=== PATIENT | male | born 1960 | race Caucasian/White ===

== ENCOUNTER 2017-07-10 13:42 | Inpatient (IN) | payer MEDICAID ==
[2017-07-10] MEDS ORDERED: NS 500 ML IV ONE (13:49)
[2017-07-10] MEDS ORDERED: ALBUTEROL 3 ML DEYVIAL IH ONE ×2 (13:49→14:32)
[2017-07-10] MEDS ORDERED: IPRATROPIUM/ALBUTEROL 3 ML DEYVIAL IH ONE (13:49)
[2017-07-10] MEDS ORDERED: methylPREDNISolone SOD SUCC 125 MG/2 ML VIAL IVP ONE (13:49)
--- NOTE | 2017-07-10 13:57 | EDPHY ---
H & P <Franky Villafana - Last Filed: 07/10/17 15:48> Smoking Status: Never smoked <Jesus Spivey Tess - Last Filed: 07/11/17 10:55> Time Seen by Provider: 07/10/17 13:47 HPI/ROS: CHIEF COMPLAINT: Shortness of breath HISTORY OF PRESENT ILLNESS: 57-year-old man with history of asthma and diabetes presents with shortness of breath for the last 4 days. He apparently intermittent use of oxygen at home, but is not on it chronically. Today he was severely short of breath, worse with exertion lying supine, only a little bit better with oxygen up to 5-7 L. cough but not productive of sputum. No fevers or chills. No chest pain or vomiting or diarrhea. He has chronic leg swelling which is unchanged. No recent travel or immobilization. He has been using inhaler without any improvement. REVIEW OF SYSTEMS: Eye: no change in vision ENT: no sore throat Cardiac: no chest pain or syncope Pulmonary: HPI Abdomen: no vomiting, diarrhea, abdominal pain Musculoskeletal: no back pain Skin: Chronic lower extremity venous stasis changes unchanged Neuro: no headache Constitutional: no fever : no urinary symptoms A comprehensive 10 point review of systems is otherwise negative aside from elements mentioned in the history of present illness. PAST MEDICAL HISTORY: Asthma and diabetes, prostate cancer, hypertension. Social history: Here with his mom, nonsmoker General Appearance: Alert and conversant, cooperative. Eyes: No scleral icterus. ENT, Mouth: Normal mucous membranes. Respiratory: Increased work of breathing, retractions, decreased air movement with increased expiratory phase and bilateral wheezing. Cardiovascular: Regular rate and rhythm. Gastrointestinal: Abdomen is soft and non tender. Neurological: Alert, face symmetric, normal motor and sensory in extremities. Skin: No petechiae or urticaria. Musculoskeletal: Bilateral pedal edema with venous stasis changes but no calf tenderness. Psychiatric: Not agitated. Emergency Department course/MDM: Patient severely short of breath with initial room air saturation in the high 80 's. Severely dyspneic on 7 L nasal cannula from his home tank on arrival. Supplemental oxygen applied, DuoNeb and albuterol nebulizer, chest x-ray and IV Solu-Medrol 80 mg. EKG troponin and D-dimer. 1429: Chest x-ray personally interpreted as bronchitis without evidence of pneumonia. D-dimer elevated greater than 0.1 times age, CT chest discussed and consented to evaluate for pulmonary embolism. Recommended admission at [facility], and ALS for transfer because of severity of reactive airway disease exacerbation, and need for supplemental oxygen. Likely reactive airway disease exacerbation, respiratory panel pending. 1438: discussed with patient, still dyspneic but feels better, more air movement but still wheezy. Additional albuterol nebulizer. Recommended admission, patient is reluctant because of cost reasons, will discuss with case management and admissions, try to get the patient more information. Warned of risks of leaving against medical advice including but not limited to worsening symptoms, respiratory or cardiac arrest, disability, . Signed out to [facility] at 1500; plan is admission, transfer to [facility], followup on CTA chest and initiate action appropriate to results. (Jesus Spivey) Constitutional: Initial Vital Signs Temperature (C) 37 C 07/10/17 13:46 Heart Rate 85 07/10/17 13:46 Respiratory Rate 20 07/10/17 13:46 Blood Pressure 185/99 H 07/10/17 13:46 O2 Sat (%) 92 07/10/17 13:46 O2 Delivery Mode Nasal Cannula O2 (L/minute) 2 Allergies/Adverse Reactions: No Known Allergies Allergy (Verified 07/10/17 13:50) Home Medications: Medication Instructions Recorded Albuterol Sulfate [ALBUTEROL 2.5 mg IH Q4H PRN 07/10/17 SULFATE 1.25 MG/3 ML] Atorvastatin Calcium [Lipitor 10 10 mg PO DAILY 07/10/17 mg (*)] FLUoxetine [Prozac 20 MG (*)] 20 mg PO DAILY 07/10/17 Furosemide [Lasix 20 MG (*)] 20 mg PO DAILY 07/10/17 Lisinopril [Zestril 40 mg (*)] 20 mg PO DAILY 07/10/17 Montelukast Sodium [Singulair 10 10 mg PO DAILY 07/10/17 mg (*)] Multivitamins [Multivitamin (*)] 1 each PO DAILY 07/10/17 Tamsulosin HCl [Flomax 0.4 MG (*)] 0.4 mg PO DAILY 07/10/17 hydrOXYzine HCL [Vistaril 25MG] 12.5 - 25 mg PO Q8H PRN 07/10/17 metFORMIN HCL [Glucophage 500 mg 500 mg PO BIDMEAL 07/10/17 (*)] Medical Decision Making - Diagnostics Imaging: Discussed imaging studies w/ call worker person Radiologist <Franky Villafana - Last Filed: 07/10/17 15:48> Consult/Admit Bed Type: [facility] <Jesus Spivey - Last Filed: 07/11/17 10:55> - Diagnostics EKG Interpretation: 12-lead EKG interpreted by me; official reading is in trace master. My interpretation is sinus rhythm with right axis deviation, rate 85. (Jesus Spivey) Imaging Results: CT angiogram of chest: Significant for two subsegmental right lower lobe pulmonary emboli. This is otherwise a normal study. Results were discussed with staff radiologist Dr. Rambo Herrera. (Franky Villafana) ED Course/Re-evaluation: I took over care of this patient at 3:00 p.m.. This patient was in the CT suite getting a CT angiogram of his chest to evaluate for pulmonary embolism. He presented primarily with asthma exacerbation but had an elevated D-dimer. CT angiogram of the chest was significant for 2 small subsegmental right lower lobe pulmonary emboli. The study was otherwise normal. Lungs were clear. No other significant pathology. The patient was continued on nebulized albuterol through his remaining emergency department course under my care. He has had improvement in his air movement but has remained wheezy. I discussed the results of his CT angiogram with him and his mother and explained the diagnosis of pulmonary embolism. I do not feel that this however is contributing to his current asthma exacerbation. He agrees to admission. He will be transferred by ambulance. I spoke with the on-call hospitalist, Dr. Palmer, discussed CT findings with him. Anticoagulation will be deferred to the hospitalist service. The patient's remaining emergency department course under my care has been uneventful. He was transferred in stable condition to [facility]. (Franky Villafana) Differential Diagnosis: Differential diagnosis considered for shortness of breath including but not limited to pulmonary infectious process, COPD, asthma, pulmonary embolus and congestive heart failure. (Jesus Spivey) - Data Points Laboratory Results: Laboratory Results 07/10/17 13:55 07/10/17 13:55 Microbiology Results: MICROBIOLOGY 07/10/17 14:20 Nasal, Sinus - Swab Respiratory Panel (PCR) - Final Coronovirus Oc43 Detected Medications Given: Albuterol (Proventil Neb) 3 ml IH QID [facility] Stop: 01/06/18 20:59 Last Admin: 07/11/17 09:21 Dose: 3 ml Albuterol (Proventil Neb) 3 ml IH Q4HRS PRN PRN Reason: Short of Breath/Dyspnea Stop: 01/06/18 16:41 Last Admin: 07/10/17 23:49 Dose: 3 ml Atorvastatin Calcium (Lipitor) 10 mg PO DAILY [facility] Stop: 01/07/18 08:59 Last Admin: 07/11/17 08:04 Dose: 10 mg Fluoxetine HCl (Prozac) 20 mg PO DAILY [facility] Stop: 01/07/18 08:59 Last Admin: 07/11/17 08:04 Dose: 20 mg Furosemide (Lasix) 20 mg PO DAILY [facility] Stop: 01/07/18 08:59 Last Admin: 07/11/17 08:04 Dose: 20 mg Insulin Human Lispro (Humalog Lispro) 0 unit SC TIDMEAL [facility] PRN Reason: Protocol Stop: 01/06/18 17:59 Last Admin: 07/11/17 07:45 Dose: Not Given Lisinopril (Zestril) 20 mg PO DAILY [facility] Stop: 01/07/18 08:59 Last Admin: 07/11/17 08:04 Dose: 20 mg Lorazepam (Ativan) 0.5 - 1 mg PO Q4HRS PRN PRN Reason: Anxiety Stop: 01/06/18 21:16 Last Admin: 07/11/17 03:03 Dose: 1 mg Montelukast Sodium (Singulair) 10 mg PO DAILY [facility] Stop: 01/07/18 08:59 Last Admin: 07/11/17 08:04 Dose: 10 mg Prednisone (Prednisone) 40 mg PO DAILY [facility] Stop: 01/07/18 08:59 Last Admin: 07/11/17 08:04 Dose: 40 mg Rivaroxaban (Xarelto) 15 mg PO BIDMEAL [facility] Stop: 01/06/18 17:59 Last Admin: 07/11/17 08:04 Dose: 15 mg Tamsulosin HCl (Flomax) 0.4 mg PO DAILY [facility] Stop: 01/07/18 08:59 Last Admin: 07/11/17 08:04 Dose: 0.4 mg Discontinued Medications Albuterol (Proventil Neb) 3 ml IH EDNOW ONE Stop: 07/10/17 13:50 Last Admin: 07/10/17 13:57 Dose: 3 ml Albuterol (Proventil Neb) 3 ml IH EDNOW ONE Stop: 07/10/17 14:33 Last Admin: 07/10/17 15:18 Dose: 3 ml Albuterol/Ipratropium (Duoneb) 3 ml IH EDNOW ONE Stop: 07/10/17 13:50 Last Admin: 07/10/17 13:57 Dose: 3 ml Furosemide (Lasix Injection) 20 mg IVP ONCE ONE Stop: 07/10/17 17:06 Last Admin: 07/10/17 18:32 Dose: 20 mg Sodium Chloride (Ns) 500 mls @ 1,000 mls/hr IV EDNOW ONE PRN Reason: Protocol Stop: 07/10/17 14:18 Last Admin: 07/10/17 13:57 Dose: 500 mls Methylprednisolone Sodium Succinate (Solu-Medrol) 80 mg IVP EDNOW ONE Stop: 07/10/17 13:50 Last Admin: 07/10/17 13:58 Dose: 80 mg Departure <Franky Villaafna - Last Filed: 07/10/17 15:48> <Jesus Spivey - Last Filed: 07/11/17 10:55> - Departure Disposition: [facility] Clinical Impression: Pulmonary embolism Exacerbation of asthma Qualifiers: Asthma severity: moderate Asthma persistence: unspecified Qualified Code(s): J45.901 - Unspecified asthma with (acute) exacerbation Condition: Fair
[2017-07-10 14:04] LABS: PLATELET COUNT 193 10^3/uL (150-400)
--- NOTE | 2017-07-10 14:04 | CPEKG ---
Heart Rate: 85 RR Interval: 706 P-R Interval: 156 QRSD Interval: 96 QT Interval: 356 QTC Interval: 424 P [place]: 53 QRS [place]: 92 T Wave [place]: 32 EKG Severity - OTHERWISE NORMAL ECG - EKG Impression: SINUS RHYTHM EKG Impression: BORDERLINE RIGHT AXIS DEVIATION Electronically Signed By: Jesus Spivey 10-Jul-2017 14:05:17
[2017-07-10] MEDS ORDERED: IOPAMIDOL (ISOVUE 370) 100 ML BTL IV ONE (14:37)
[2017-07-10] MEDS ORDERED: ONDANSETRON 4 MG/2 ML VIAL IVP PRN (15:07)
[2017-07-10] MEDS ORDERED: ACETAMINOPHEN 325 MG TAB PO PRN (15:07)
[2017-07-10] MEDS ORDERED: ONDANSETRON DISINTEGRATING 4 MG TAB PO PRN (15:07)
[2017-07-10] MEDS ORDERED: oxyCODONE IR 5 MG TAB PO PRN (15:07)
[2017-07-10] MEDS ORDERED: FUROSEMIDE 20 MG/2 ML VIAL IVP ONE (17:05)
[2017-07-10] MEDS ORDERED: D50W 25 GM/50 ML VIAL IVP PRN (17:06)
--- NOTE | 2017-07-10 17:12 | PDGENHP ---
History and Physical - Chief Complaint SOB - History of Present Illness 57-year-old man with history of asthma and diabetes presents with shortness of breath for the last 4 days. He apparently intermittent use of oxygen at home, but is not on it chronically. Today he was severely short of breath, worse with exertion lying supine, only a little bit better with oxygen up to 5-7 L. cough but not productive of sputum. No fevers or chills. No chest pain or vomiting or diarrhea. He has chronic leg swelling which is unchanged. He denies a hx of CHF, but is on diuretics. He also reports that he has never had an echocardiogram. CXR c/w peribronchial thickening He has been using inhaler without any improvement. He denies CP or palpitations. He does have MCKAY and orthopnea. He does have leg edema unchanged CTA c/w small volume subsegmental acute Pulmonary Embolus RLL, bronchitis. No e/ o of right heart strain. No e/o pneumonia PAST MEDICAL HISTORY: Asthma and diabetes, prostate cancer, hypertension. Social Hx: non smoker FMhx: + CV disease History Information - Allergies/Home Medication List Allergies/Adverse Reactions: No Known Allergies Allergy (Verified 07/10/17 13:50) Home Medications: Albuterol Sulfate [ALBUTEROL SULFATE 1.25 MG/3 ML] 2.5 mg IH Q4H PRN 07/10/17 [ Last Taken 07/10/17 13:00] Atorvastatin Calcium [Lipitor 10 mg (*)] 10 mg PO DAILY 07/10/17 [Last Taken ] FLUoxetine [Prozac 20 MG (*)] 20 mg PO DAILY 07/10/17 [Last Taken 07/10/17] Furosemide [Lasix 20 MG (*)] 20 mg PO DAILY 07/10/17 [Last Taken 07/10/17] Lisinopril [Zestril 40 mg (*)] 20 mg PO DAILY 07/10/17 [Last Taken 07/10/17] Montelukast Sodium [Singulair 10 mg (*)] 10 mg PO DAILY 07/10/17 [Last Taken ] Multivitamins [Multivitamin (*)] 1 each PO DAILY 07/10/17 [Last Taken 07/10/17] Tamsulosin HCl [Flomax 0.4 MG (*)] 0.4 mg PO DAILY 07/10/17 [Last Taken 07/10/17 ] hydrOXYzine HCL [Vistaril 25MG] 12.5 - 25 mg PO Q8H PRN 07/10/17 [Last Taken Unknown] metFORMIN HCL [Glucophage 500 mg (*)] 500 mg PO BIDMEAL 07/10/17 [Last Taken 09:00] I have personally reviewed and updated: medical history, social history - Social History Smoking Status: Never smoked Review of Systems Review of Systems: ROS: 10pt was reviewed & negative except for what was stated in HPI & below Physical Exam Physical Exam: Temp Pulse Resp BP Pulse Ox 36.6 C 98 18 160/95 H 93 07/10/17 16:10 07/10/17 16:10 07/10/17 16:10 07/10/17 16:10 07/10/17 16:10 O2 (L/minute) 3 Constitutional: no apparent distress Eyes: PERRL, EOMI Ears, Nose, Mouth, Throat: moist mucous membranes, hearing normal Cardiovascular: regular rate and rhythym, edema, No JVD Respiratory: reduced air movement, expiratory wheeze Gastrointestinal: normoactive bowel sounds Genitourinary: no bladder fullness Skin: warm Musculoskeletal: full muscle strength Neurologic: AAOx3 Psychiatric: interacting appropriately, not anxious, not encephalopathic Lymph, Heme, Immunologic: No petechiae Lab Data & Imaging Review 07/10/17 13:55 07/10/17 13:55 WBC 6.94 10^3/uL (3.80-9.50) 07/10/17 13:55 RBC 6.26 10^6/uL (4.40-6.38) 07/10/17 13:55 Hgb 16.5 g/dL (13.7-17.5) 07/10/17 13:55 Hct 51.9 % (40.0-51.0) H 07/10/17 13:55 MCV 82.9 fL (81.5-99.8) 07/10/17 13:55 MCH 26.4 pg (27.9-34.1) L 07/10/17 13:55 MCHC 31.8 g/dL (32.4-36.7) L 07/10/17 13:55 RDW 17.4 % (11.5-15.2) H 07/10/17 13:55 Plt Count 193 10^3/uL (150-400) 07/10/17 13:55 MPV 9.8 fL (8.7-11.7) 07/10/17 13:55 Neut % (Auto) 74.4 % (39.3-74.2) H 07/10/17 13:55 Lymph % (Auto) 11.8 % (15.0-45.0) L 07/10/17 13:55 [place] % (Auto) 11.2 % (4.5-13.0) 07/10/17 13:55 Eos % (Auto) 1.7 % (0.6-7.6) 07/10/17 13:55 Baso % (Auto) 0.3 % (0.3-1.7) 07/10/17 13:55 Nucleat RBC Rel Count 0.0 % (0.0-0.2) 07/10/17 13:55 Absolute Neuts (auto) 5.16 10^3/uL (1.70-6.50) 07/10/17 13:55 Absolute Lymphs (auto) 0.82 10^3/uL (1.00-3.00) L 07/10/17 13:55 Absolute Monos (auto) 0.78 10^3/uL (0.30-0.80) 07/10/17 13:55 Absolute Eos (auto) 0.12 10^3/uL (0.03-0.40) 07/10/17 13:55 Absolute Basos (auto) 0.02 10^3/uL (0.02-0.10) 07/10/17 13:55 Absolute Nucleated RBC 0.00 10^3/uL (0-0.01) 07/10/17 13:55 Immature Gran % 0.6 % (0.0-1.1) 07/10/17 13:55 Immature Gran # 0.04 10^3/uL (0.00-0.10) 07/10/17 13:55 D-Dimer 0.65 ug/mLFEU (0.00-0.50) H 07/10/17 13:55 Sodium 139 mEq/L (135-145) 07/10/17 13:55 Potassium 4.5 mEq/L (3.5-5.2) 07/10/17 13:55 Chloride 96 mEq/L (97-110) L 07/10/17 13:55 Carbon Dioxide 29 mEq/l (22-31) 07/10/17 13:55 Anion Gap 14 mEq/L (8-16) 07/10/17 13:55 BUN 12 mg/dL (7-23) 07/10/17 13:55 Creatinine 0.7 mg/dL (0.7-1.3) 07/10/17 13:55 Estimated GFR > 60 07/10/17 13:55 Glucose 122 mg/dL (70-100) H 07/10/17 13:55 Calcium 9.2 mg/dL (8.5-10.4) 07/10/17 13:55 Troponin I 0.015 ng/mL (0.000-0.034) 07/10/17 13:55 Assessment & Plan Assessment: #Acute Asthma Exacerbation #Acute Viral Bronchitis (Aparicio Virus) #Pedal Edema, Query CHF #Acute Respiratory Failure #Small volume RLL subsegmental Acute pulmonary Embolus, likely not contributing to his sx -unprovoked Plan: -Cont steroids -Scheduled albuterol -Check TTE -Lasix x 1 -check dopplers, although doubt LE DVT -DM mgmt -cont appropriate home meds -Start Xarelto, would determine duration of AC pending doppler studies
[2017-07-10] MEDS: RIVAROXABAN 15 MG TAB PO SCH (18:32)
[2017-07-10] MEDS: INSULIN LISPRO 100 UNIT/ML SC SCH (19:07)
[2017-07-10] MEDS: ALBUTEROL 3 ML DEYVIAL IH SCH (19:52)
[2017-07-10] MEDS: LORazepam 1 MG TAB PO PRN (21:25)
[2017-07-10] MEDS: ALBUTEROL 3 ML DEYVIAL IH PRN (23:49)
[2017-07-11] MEDS: LORazepam 1 MG TAB PO PRN ×3 (03:03→20:18)
[2017-07-11 05:19] LABS: PLATELET COUNT 198 10^3/uL (150-400)
[2017-07-11] MEDS: ALBUTEROL 3 ML DEYVIAL IH SCH ×4 (05:43→20:29)
[2017-07-11] MEDS: INSULIN LISPRO 100 UNIT/ML SC SCH ×3 (07:45→17:39)
[2017-07-11] MEDS: ATORVASTATIN CALCIUM 10 MG TAB PO SCH (08:04)
[2017-07-11] MEDS: RIVAROXABAN 15 MG TAB PO SCH ×2 (08:04→17:40)
[2017-07-11] MEDS: TAMSULOSIN HCL 0.4 MG CAP PO SCH (08:04)
[2017-07-11] MEDS: FUROSEMIDE 20 MG TAB PO SCH (08:04)
[2017-07-11] MEDS: FLUoxetine 20 MG CAP PO SCH (08:04)
[2017-07-11] MEDS: predniSONE 20 MG TAB PO SCH (08:04)
[2017-07-11] MEDS: MONTELUKAST SODIUM 10 MG TAB PO SCH (08:04)
[2017-07-11] MEDS: LISINOPRIL 20 MG TAB PO SCH (08:04)
--- NOTE | 2017-07-11 10:40 | ASMTCMCOM ---
CM Note CM Note Notes: Spoke w/DISTRICT LEADER, anticipate pt will dc home independent when medically stable, may need some home O2. CM available for any changes. DC Plan: Independent Date Signed: 07/11/2017 10:39 AM Electronically Signed By:Laurita Martino RN
--- NOTE | 2017-07-11 11:00 | ECHO ---
[email or web address] [address] Main: [phone] Fax: Transthoracic Echocardiogram Name: ERIC SAMUEL MR#: [id number] Study Date: 07/11/2017 Study Time: 07:41 AM Date of : 1960 Age: 57 year(s) Height: 180.3 cm (71 in.) Weight: 127.01 kg (280 lb.) BSA: 2.43 m2 Gender: Male Examination: Echo Indication: Hypoxia, Asthma Image Quality: Contrast: Requested by: Kit Palmer BP: 154 mmHg/101 mmHg Heart Rate: Rhythm: Normal sinus rhythm Indication: Hypoxia, Asthma Procedure Staff Senior Technical Manager: Tee Abreu Reading Physician: Sly Amos Requesting Provider: Conclusions: Normal size left ventricle. Mild concentric LV hypertrophy. EF is 69 %. No regional wall motion abnormality. Normal appearing valvular structures. No valvular dysfunction. No pericardial effusion. Measurements: Chambers Valvular Assessment AV/MV Valvular Assessment TV/PV Normal Normal Normal Name Value Range Name Value Range Name Value Range Ao [place] (MM): 2.5 cm (2.2 cm-3.7 AV Vmax: 1.89 m/s (1 m/s-1.7 PV Vmax: 0.84 m/s (0.6 m/s-0.9 cm) m/s) m/s) IVSd (2D): 1.2 cm (0.6 cm-1.1 AV maxP mmHg ( - ) PV PGmax: 3 mmHg ( - ) cm) LVOT Vmax: 1.30 m/s (0.7 m/s-1.1 LVDd (2D): 5.0 cm (4.2 cm-5.9 m/s) cm) MV E Vmax: 1.00 m/s ( - ) LVDs (2D): 3.0 cm (2.1 cm-4 MV A Vmax: 0.92 m/s ( - ) cm) MV E/A: 1.09 ( - ) LVPWd (2D): 1.2 cm (0.6 cm-1 cm) LVEF (2D): 69 (>=54 %) Continued Measurements: Chambers Valvular Assessment AV/MV Name Value Name Value LADs Lon.6 cm MV E/E' Septal: 24.40 LA Area: 18.9 cm2 MV E/E' Lateral: 10.00 Patient: ERIC SAMUEL Study Date: 07/11/2017 Page 1 of 2 07:41 AM LA Volume: 61 ml LA Volume Index: 25.1 ml/m2 Findings: Left Ventricle: Normal size left ventricle. Mild concentric LV hypertrophy. Normal global systolic LV function. EF is 69 %. No regional wall motion abnormality. Right Ventricle: Normal size right ventricle. Normal RV function. Left Atrium: The left atrium is normal in size. Right Atrium: The right atrium is normal in size. Mitral Valve: The mitral valve is normal in appearance and function. Aortic Valve: The aortic valve is normal in appearance and function. Tricuspid Valve: The tricuspid valve is normal in appearance and function. Pulmonic Valve: The pulmonic valve is normal in appearance and function. Aorta: The aorta is normal. Pericardium: No pericardial effusion. (No Signature Object) Patient: ERIC SAMUEL Study Date: 07/11/2017 Page 2 of 2 07:41 AM [id number]
--- NOTE | 2017-07-11 15:25 | HOSPPROG ---
Hospitalist Progress Note Assessment/Plan: 57y male with c/o sob. First encounter, chart reviewed. D/W CM. #Acute Asthma Exacerbation improved #Acute Viral Bronchitis ([place] Virus) on o2 #Pedal Edema better chronic, vascular issues d/w pt fu with PCP #Acute hypoxemic Respiratory Failure cont supplement o2 #Small volume RLL subsegmental Acute pulmonary Embolus, likely not contributing to his sx unprovoked anticoagulate, xarelto ECHO stable family hx of DC needs outpt follow up Plan: -Cont steroids -Scheduled albuterol -Lasix x 1 -DM mgmt -cont appropriate home meds -Start Xarelto, would determine duration of AC pending doppler studies -needs multiple things worked up as outpatient -reviewed with pt -agrees with plan -change to inpatient -requires supportive care overnight Subjective: Still very SOB. Tired and weak. Objective: Vital Signs Temp Pulse Resp BP Pulse Ox 36.8 C 98 20 154/101 H 93 07/11/17 07:27 07/11/17 14:06 07/11/17 14:06 07/11/17 08:04 07/11/17 14:06 Laboratory Results 07/11/17 04:32 07/11/17 04:32 07/10/17 07/11/17 07/12/17 05:59 05:59 05:59 Intake Total 500 Output Total 600 Balance -100 - Physical Exam Constitutional: chronically ill appearing, obese, uncomfortable Eyes: PERRL, anicteric sclera, EOMI Ears, Nose, Mouth, Throat: moist mucous membranes, hearing normal, ears appear normal Cardiovascular: regular rate and rhythym, edema, No JVD Respiratory: no rales or rhonchi, reduced air movement, expiratory wheeze Gastrointestinal: normoactive bowel sounds, No tenderness, No ascites Skin: warm, normal color, No erythema Musculoskeletal: normal joint ROM, no joint effusions, generalized weakness Neurologic: AAOx3 Psychiatric: interacting appropriately, not anxious, not encephalopathic, thought process linear, poor insight, poor judgement ICD10 Worksheet Patient Problems: Problems Problem Status Onset Exacerbation of asthma Acute Pulmonary embolism Acute
--- NOTE | 2017-07-11 16:28 | PDMN ---
Medical Necessity Medical necessity: Change to IP, as of 07/11/17, per COIL INSPECTOR; los >2 mn for ongoing management of acute hypoxemic respiratory failure, acute asthma exacerbation, acute viral bronchitis, pedal edema & small volume RLL subsegmental acute PE; admit for further monitoring & supportive care; per progress note & order
[2017-07-12] MEDS: ALBUTEROL 3 ML DEYVIAL IH PRN (01:44)
[2017-07-12] MEDS: ALBUTEROL 3 ML DEYVIAL IH SCH ×5 (05:37→21:09)
[2017-07-12] MEDS: INSULIN LISPRO 100 UNIT/ML SC SCH ×3 (08:16→17:14)
[2017-07-12] MEDS: RIVAROXABAN 15 MG TAB PO SCH ×2 (08:36→17:15)
[2017-07-12] MEDS: MONTELUKAST SODIUM 10 MG TAB PO SCH (08:36)
[2017-07-12] MEDS: TAMSULOSIN HCL 0.4 MG CAP PO SCH (08:36)
[2017-07-12] MEDS: ATORVASTATIN CALCIUM 10 MG TAB PO SCH (08:36)
[2017-07-12] MEDS: LISINOPRIL 20 MG TAB PO SCH (08:36)
[2017-07-12] MEDS: predniSONE 20 MG TAB PO SCH (08:36)
[2017-07-12] MEDS: FLUoxetine 20 MG CAP PO SCH (08:36)
[2017-07-12] MEDS: FUROSEMIDE 20 MG TAB PO SCH (08:36)
[2017-07-12] MEDS: AZITHROMYCIN 250 MG TAB PO SCH (08:36)
[2017-07-12] MEDS: guaiFENesin 600 MG TAB.ER PO SCH ×2 (09:17→20:06)
[2017-07-12] MEDS ORDERED: FUROSEMIDE 20 MG/2 ML VIAL IVP ONE (10:01)
--- NOTE | 2017-07-12 10:06 | HOSPPROG ---
Hospitalist Progress Note Assessment/Plan: 57y male with c/o sob. #Acute Asthma Exacerbation improving cont supportive care #Acute Viral Bronchitis ([place] Virus) on o2 started azithro possible bacterial component #Pedal Edema better chronic, vascular issues d/w pt fu with PCP #Acute hypoxemic Respiratory Failure cont supplement o2 #Small volume RLL subsegmental Acute pulmonary Embolus, likely not contributing to his sx unprovoked anticoagulate, xarelto ECHO stable family hx of [place] needs outpt follow up Plan: -Cont steroids -Scheduled albuterol -Lasix x 1 -DM mgmt -cont appropriate home meds -Xarelto -needs multiple things worked up as outpatient -reviewed with pt -agrees with plan -requires supportive care overnight long discussion with pt about weightloss, overall health, and lifestyle changes. he understands changes need to be made. >40 min spent with pt Subjective: Feeling a bit better. Still very SOB. Objective: Vital Signs Temp Pulse Resp BP Pulse Ox 36.6 C 78 18 119/83 H 96 07/12/17 07:14 07/12/17 07:14 07/12/17 07:14 07/12/17 08:36 07/12/17 07:14 - Physical Exam Constitutional: chronically ill appearing, obese, uncomfortable Eyes: PERRL, anicteric sclera, EOMI Ears, Nose, Mouth, Throat: moist mucous membranes, hearing normal, ears appear normal Cardiovascular: edema, No JVD, No tachycardia Respiratory: no respiratory distress, no rales or rhonchi, reduced air movement Gastrointestinal: normoactive bowel sounds, No tenderness, No ascites Skin: warm, normal color, No erythema Musculoskeletal: normal joint ROM, no joint effusions, generalized weakness Neurologic: AAOx3 Psychiatric: interacting appropriately, not anxious, not encephalopathic, thought process linear ICD10 Worksheet Patient Problems: Problems Problem Status Onset Exacerbation of asthma Acute Pulmonary embolism Acute
[2017-07-12] MEDS: LORazepam 1 MG TAB PO PRN (20:06)
[2017-07-13] MEDS: ALBUTEROL 3 ML DEYVIAL IH PRN (02:16)
[2017-07-13] MEDS: ALBUTEROL 3 ML DEYVIAL IH SCH ×2 (06:23→10:22)
[2017-07-13 07:39] VITALS: RESP 14
--- NOTE | 2017-07-13 08:32 | HOSPPROG ---
Hospitalist Progress Note Assessment/Plan: 57-year-old man with history of asthma and diabetes presents with shortness of breath for the last 4 days. He apparently intermittent use of oxygen at home #Acute Asthma Exacerbation steroids #Acute Viral Bronchitis ([place] Virus) on o2 started azithromycin possible bacterial component #Pedal Edema better chronic, vascular issues d/w pt fu with PCP #Acute hypoxemic Respiratory Failure cont supplement o2 still on 5 liters of oxygen #Small volume RLL subsegmental Acute pulmonary Embolus, likely not contributing to his sx unprovoked anticoagulate, xarelto ECHO stable family hx of [place] needs outpt follow up #plan: if feeling better, will dc after lunch Subjective: [place] is feeling better this morning. Objective: Vital Signs Temp Pulse Resp BP Pulse Ox 36.5 C 72 14 120/68 93 07/13/17 07:37 07/13/17 07:37 07/13/17 07:37 07/13/17 07:37 07/13/17 07:37 - Physical Exam Constitutional: not in pain, obese Eyes: PERRL Ears, Nose, Mouth, Throat: hearing normal Respiratory: no respiratory distress Gastrointestinal: normoactive bowel sounds Skin: warm Musculoskeletal: full muscle strength Neurologic: AAOx3 Psychiatric: interacting appropriately ICD10 Worksheet Patient Problems: Problems Problem Status Onset Exacerbation of asthma Acute Pulmonary embolism Acute
[2017-07-13] MEDS: guaiFENesin 600 MG TAB.ER PO SCH (08:50)
[2017-07-13] MEDS: ATORVASTATIN CALCIUM 10 MG TAB PO SCH (08:50)
[2017-07-13] MEDS: FUROSEMIDE 20 MG TAB PO SCH (08:50)
[2017-07-13] MEDS: TAMSULOSIN HCL 0.4 MG CAP PO SCH (08:50)
[2017-07-13] MEDS: MONTELUKAST SODIUM 10 MG TAB PO SCH (08:50)
[2017-07-13] MEDS: FLUoxetine 20 MG CAP PO SCH (08:50)
[2017-07-13] MEDS: predniSONE 20 MG TAB PO SCH (08:51)
[2017-07-13] MEDS: RIVAROXABAN 15 MG TAB PO SCH (08:51)
[2017-07-13] MEDS: AZITHROMYCIN 250 MG TAB PO SCH (08:51)
[2017-07-13] MEDS: LISINOPRIL 20 MG TAB PO SCH (08:51)
[2017-07-13] MEDS: INSULIN LISPRO 100 UNIT/ML SC SCH ×2 (09:28→14:25)
[2017-07-13] MEDS: FLUTICASONE/SALMETER 250/50MCG DISKUS IH SCH ×2 (10:22→13:32)
[2017-07-13 11:25] VITALS: BP 111/69; PULSE 74; TEMP 98
[2017-07-13 15:46] VITALS: O2SAT 89
--- NOTE | 2017-07-13 16:49 | ASDISCHSUM ---
Discharge Information Plan Status:Home with No Needs Medically Cleared to Leave:07/12/2017 Discharge Date:07/13/2017 03:40 PM CM D/C Disposition:Home, Routine, Self-Care ADT D/C Disposition:Home, Routine, Self-Care Projected Discharge Date:07/13/2017 03:40 PM Transportation at D/C:Family Discharge Delay Reason: Follow-Up Date:07/13/2017 03:40 PM Discharge Slot: Final Diagnosis: Placement Information Patient Contact Information Contact Name:REINALDO Relationship:Mother Address: Work Phone: City: [facility] Phone: State/[place] Code: Email: Financial Information Financial Class: Primary Plan Desc:[employer] [place] Primary Plan Number:[id number] Secondary Plan Desc: Secondary Plan Number: Assessment Information [facility] CM Progress Note CM Note CM Note Notes: Spoke w/CIAIO [employer] IN[employer], anticipate pt will dc home independent when medically stable, may need some home O2. CM available for any changes. DC Plan: Independent Date Signed: 07/11/2017 10:39 AM Electronically Signed By:Laurita Martino RN Intervention Information
--- NOTE | 2017-07-13 21:21 | GDS ---
[f rep st] DISCHARGE SUMMARY DISCHARGE DIAGNOSES: 1. Acute asthma exacerbation. 2. Acute viral bronchitis, coronavirus. 3. Pedal edema. 4. Acute hypoxemic respiratory failure. 5. Small volume subsegmental acute pulmonary embolus, unprovoked. Briefly, the patient is a 57-year-old male with history of asthma and diabetes. He presented with shortness of breath the last 4 days. He uses oxygen at home. HOSPITAL COURSE: 1. Acute asthma exacerbation, markedly improved with steroids. Also started him on Advair inhaler. 2. Acute viral bronchitis. He has coronavirus. He was treated with azithromycin. He will get several more days of this. On room air, his oxygen levels were stable at discharge. He does have oxygen at home. 3. Pedal edema. This is chronic. Further follow up with his PCP. 4. Acute hypoxemic respiratory failure, was on 5 L this morning, but when checked on room air today he was 91%. 5. Small volume right lower lobe subsegmental acute pulmonary embolus. He was started on Xarelto. Further follow up with his primary care provider in regard to this. DISCHARGE CONDITION: Stable. Blood pressure is 111/69, heart rate is 74, respiratory rate of 14, O2 sats on room air are 89% to 91%, temperature 36.7 Celsius. MEDICATIONS AT DISCHARGE: Please see the EMR. DISCHARGE INSTRUCTIONS: 1. Continue Xarelto as instructed. 2. To further follow up with his primary care provider in regard to length of treatment. 3. If he develops fever, chills, chest pain, or shortness of breath, return to the emergency room. 4. Greater than 30 minutes discharging and coordinating the patient's care. /[id number]/MODL MTDD
== END 2017-07-13 15:40 | disposition home or self-care (01) | DRG 175 ==
LOC: CED 13:42 → CEDHOLD 14:32 → F3E 16:51 → OBSVTOIN 07-11 15:25
PROVIDERS: ADMIT Family Medicine; ATTEND Family Medicine
DX: I26.99 Other pulmonary embolism without acute cor pulmonale (principal); J96.01 Acute respiratory failure with hypoxia; J45.901 Unspecified asthma with (acute) exacerbation; J20.8 Acute bronchitis due to other specified organisms; E11.9 Type 2 diabetes mellitus without complications; I10 Essential (primary) hypertension; Z85.46 Personal history of malignant neoplasm of prostate
CPT/HCPCS: 71046-PO; 71275-PO; 80048-PO; 83880-PO; 84484-PO; 85025-PO; 85378-PO; 96374; G0378; J1815; J1940; J2930; J7512; J7613; Q9967